=== PATIENT | male | born 1955 | race Caucasian/White ===

== ENCOUNTER 2018-10-15 20:29 | Emergency (ER) | payer MEDICARE, MEDICAID ==
[~2018-10-15] VITALS: Ht 175.3 cm; Wt 57.0 kg
[~2018-10-15 20:29] MED LIST: ANTIVERT PO
[2018-10-15] MEDS ORDERED: ZPAK PO (22:30)
[2018-10-15] MEDS ORDERED: ROBITUSSIN AC10 ML PO (22:31)
[2018-10-15 22:45] VITALS: BP 113/72
== END 2018-10-15 22:52 | disposition home or self-care (01) ==
LOC: ED 20:29
DX: J06.9 Acute upper respiratory infection, unspecified (principal); F17.210 Nicotine dependence, cigarettes, uncomplicated

== ENCOUNTER 2019-01-30 02:27 | Emergency (ER) | payer MEDICARE, MEDICAID ==
[~2019-01-30] VITALS: Ht 175.3 cm; Wt 65.9 kg
[~2019-01-30 02:27] MED LIST changes: +ROBITUSSIN AC10 ML PO; +ZPAK PO
[2019-01-30] MEDS ORDERED: FLEXERIL PO (03:44)
[2019-01-30] MEDS ORDERED: LORTAB 1010 MG PO (03:44)
[2019-01-30 05:41] VITALS: BP 150/77
== END 2019-01-30 05:39 | disposition home or self-care (01) ==
LOC: ED 02:27
DX: M47.26 Other spondylosis with radiculopathy, lumbar region (principal); F17.200 Nicotine dependence, unspecified, uncomplicated

== ENCOUNTER 2021-11-11 19:53 | Emergency (ER) | payer MEDICARE, MEDICAID ==
[~2021-11-11] VITALS: Ht 175.3 cm; Wt 64.0 kg
[~2021-11-11 19:53] MED LIST changes: +FLEXERIL PO; +LORTAB 1010 MG PO
[2021-11-11 21:36] LABS: HEMATOCRIT 43.8 % (39.0-50.0); HEMOGLOBIN 14.3 g/dl (14.0-18.0); IMMATURE GRANULOCYTES 0.1 % (0.0-5.0); MEAN CELL VOLUME 92.2 fL CALC (80.0-100.0); MEAN CORPUSCULAR HGB 30.1 pG CALC (26.0-32.0); MEAN CORPUSCULAR HGB CONC 32.6 g/dL CAL (32.0-36.0); NEUT# 4.99 thou/uL (1.82-7.42); RED BLOOD COUNT 4.75 mill/uL (4.70-6.10)
[2021-11-11 22:30] VITALS: BP 137/72
== END 2021-11-11 22:33 | disposition home or self-care (01) ==
LOC: ED 19:53
PROVIDERS: Family Medicine
DX: J06.9 Acute upper respiratory infection, unspecified (principal); F17.210 Nicotine dependence, cigarettes, uncomplicated; Z20.822 Contact with and (suspected) exposure to COVID-19

== ENCOUNTER 2022-04-03 15:42 | Emergency (ER) | payer MEDICARE, MEDICAID ==
[~2022-04-03] VITALS: Ht 175.3 cm; Wt 65.0 kg
[2022-04-03 17:14] LABS: HEMATOCRIT 39.1 % (39.0-50.0); HEMOGLOBIN 12.7 g/dl (14.0-18.0); IMMATURE GRANULOCYTES 0.1 % (0.0-5.0); MEAN CELL VOLUME 95.4 fL CALC (80.0-100.0); MEAN CORPUSCULAR HGB CONC 32.5 g/dL CAL (32.0-36.0); NEUT# 4.09 thou/uL (1.82-7.42); RED BLOOD COUNT 4.1 mill/uL (4.70-6.10); RED CELL DISTRI WIDTH 13.3 % (11.5-15.5)
[2022-04-03 17:29] LABS: ALKALINE PHOSPHATASE 54 u/l (38-126); BUN 17 mg/dL (8-23); BUN/CREATININE RATIO 18 (12-20 (CALC)); CARBON DIOXIDE 27 mmol/l (22-30); CHLORIDE 109 mmol/l (95-108); CREATININE 0.9 mg/dL (0.7-1.3); GFR FOR AFR.AMER. > 60 ML/MIN (>=60 (CALC)); GFR OTHER RACES > 60 ML/MIN (>=60 (CALC)); SGOT/AST 18 u/l (19-48); SODIUM 141 mmol/l (137-146)
[2022-04-03 17:32] LABS: ALBUMIN 3.6 g/dL (3.2-5.0); ANION GAP 9 (6-22 (CALC)); BILIRUBIN, TOTAL 0.4 mg/dL (0.0-1.4); POTASSIUM 3.8 mmol/l (3.5-5.1); TOTAL PROTEIN 6.2 g/dL (6.3-8.2)
[2022-04-03 17:41] LABS: MYOGLOBIN 57 ng/mL (0 - 121)
[2022-04-03 17:48] VITALS: BP 121/74
== END 2022-04-03 17:45 | disposition home or self-care (01) ==
LOC: ED 15:42
PROVIDERS: Emergency Medicine
DX: Z03.89 Encounter for observation for other suspected diseases and conditions ruled out (principal); F17.210 Nicotine dependence, cigarettes, uncomplicated